=== PATIENT | female | born 1965 | race Hispanic/Latino ===

== ENCOUNTER 2023-03-16 10:34 | Outpatient (CLI) | payer OTHER | END 2023-03-16 10:35 | disposition home or self-care (01) | LOC: RAD 10:34 | PROVIDERS: ATTEND Nurse Practitioner Women's Health | DX: R04.2 Hemoptysis (principal) | CPT/HCPCS: 71046 ==

== ENCOUNTER 2024-08-28 15:45 | Outpatient (CLI) | payer OTHER | END 2024-08-28 15:46 | disposition home or self-care (01) | LOC: BICRAD 15:45 | PROVIDERS: ATTEND Nurse Practitioner Family | DX: R04.2 Hemoptysis (principal) | CPT/HCPCS: 71046 ==